=== PATIENT | female | born 1965 | race Caucasian/White ===

== ENCOUNTER 2017-05-11 13:29 | Emergency (ER) | payer MEDICARE ==
--- NOTE | 2017-05-11 14:36 | UC ---
Head Injury HPI - HPI Summary HPI Summary: patient slipped on the ice yesterday, per her , she does not remember falling, she was told she was not making sense, her took her to the ER, but they did not stay do to the wait. She is complaining of neck pain over the upper C spine. She is complaining of jaw and fullness in the sinus area nausea, and admits to confusion with her speech, not being able to find the right words. She does not feel comfortable moving her head. - History Of Current Complaint Chief Complaint: UCHeadInjury Stated Complaint: NECK PAIN/HEAD INJ Time Seen by Provider: 05/11/17 14:18 Hx Obtained From: Patient ?: No - pt is sexually active, NO BC, lmp december, waived UA Mechanism Of Injury: fall, hit back of head Onset/Duration: Sudden Onset, Lasting Days - 1 Severity Currently: Severe Severity Initially: Severe Character: Dull, Throbbing, Pressure Aggravating Factor(s): Nothing Alleviating Factor(s): Nothing Associated Signs And Symptoms: Positive: LOC Duration Unknown, Confusion, Memory Loss, Neck Pain, Nausea - Allergies/Home Medications Allergies/Adverse Reactions: Allergies Allergy/AdvReac Type Severity Reaction Status Date / Time No Known Allergies Allergy Verified 05/11/17 13:56 Home Medications: Home Medications Levothyroxine TAB* [Synthroid TAB*] 125 mcg PO 0800 05/11/17 [History Confirmed 05/11/17] Verapamil TAB* [Calan TAB*] 120 mg PO BID 05/11/17 [History Confirmed 05/11/17] clonazePAM TAB(*) [KlonoPIN TAB(*)] 0.5 mg PO TID PRN 05/11/17 [History Confirmed 05/11/17] PMH/Surg Hx/FS Hx/Imm Hx Previously Healthy: Yes - Surgical History Surgical History: None - Family History Known Family History: Positive: Hypertension - Social History Alcohol Use: None Alcohol Amount: sober x 11 days Substance Use Type: None Smoking Status (MU): Never Smoked Tobacco Review of Systems Constitutional: Negative Skin: Negative Eyes: Negative ENT: Negative Respiratory: Negative Cardiovascular: Negative Gastrointestinal: Negative Genitourinary: Negative Motor: Negative Neurovascular: Decreased Sensation - left foot and hand Musculoskeletal: Arthralgia - right thorasic and neck, Myalgia - back and neck and jaw Neurological: Headache Psychological: Negative Is Patient Immunocompromised?: No All Other Systems Reviewed And Are Negative: Yes Physical Exam Triage Information Reviewed: Yes Appearance: Well-Nourished, Ill-Appearing, Pain Distress Vital Signs: Initial Vital Signs Temp 98.7 F 05/11/17 13:43 Pulse 79 05/11/17 13:43 Resp 16 05/11/17 13:43 BP 150/97 05/11/17 13:43 Pulse Ox 98 05/11/17 13:43 Vital Signs Reviewed: Yes Eye Exam: Normal Eyes: Positive: Other: - PERRLA ENT: Positive: Pharynx normal Dental Exam: Normal Dental: Positive: Other: - lower mandible tenderness on palpation Neck exam: Normal Neck: Positive: Supple, No Lymphadenopathy, Tenderness @ - over the cervical spine and occiput Respiratory Exam: Normal Respiratory: Positive: Chest non-tender, Lungs clear, Normal breath sounds Cardiovascular Exam: Normal Cardiovascular: Positive: RRR, No Murmur, Pulses Normal Abdominal Exam: Normal Abdomen Description: Positive: Nontender, No Organomegaly, Soft Bowel Sounds: Positive: Present Musculoskeletal Exam: Normal Musculoskeletal: Positive: Strength Intact, ROM Intact, No Edema Neurological Exam: Normal Neurological: Positive: Alert, Muscle Tone Normal Psychological: Positive: Other: - seems confused at times with questioning Skin Exam: Normal Head Injury Course/Dx - Course Course Of Treatment: hx obtained, exam performed ,meds reviewed, ct of brain and c spine completed. - Differential Dx/Diagnosis Differential Diagnosis/HQI/PQRI: Cervical Sprain, Concussion With LOC, Contusion , Mandible Fracture, Skull Fracture Provider Diagnoses: Concussion with LOC. DJD of cervical spine. sinusitis Discharge - Discharge Plan Condition: Stable Disposition: HOME Patient Education Materials: Post Concussion Syndrome (ED), Concussion (ED), Sinusitis (ED) Referrals: Tawny Cervantes PA [Primary Care Provider] - Additional Instructions: Follow up with Tawny Cervantes in the next week Rest, no TV, PHONE, keep music at a minimum, rest, in dark quiet room, If your symtpoms worsen please report to ER Your CT of the brain was negative for any bleeding. Your CT was negative for Fracture, noted some chronic dengerative joint disease of the C2 -C4 WEAR the soft collar for support, continue with tylenol and ibuprofen for pain and stiffness. take the flexeril as needed. I recommend not driving until cleasred by Tawny Cervantes. You also have a significant Sinusitis of the left maxillary sinus. take the amoxicillin as prescribed.
--- NOTE | 2017-05-11 15:15 | RAD ---
HISTORY: Fall, loss of consciousness COMPARISONS: October 02, 2006 TECHNIQUE: Multiple contiguous axial CT scans were obtained of the head without intravenous contrast. FINDINGS: HEMORRHAGE/INFARCT: There is no hemorrhage or acute infarct. MASSES/SHIFT: There is no mass or shift. EXTRA-AXIAL SPACES: There are no extra-axial fluid collections. SULCI AND VENTRICLES: The sulci and ventricles are normal in size and position for the patient's stated age. CEREBRUM: There are no focal parenchymal abnormalities. BRAINSTEM: There are no focal parenchymal abnormalities. CEREBELLUM: There are no focal parenchymal abnormalities. VESSELS: The vessels are grossly normal. PARANASAL SINUSES: There is polypoid mucosal thickening versus mucus retention cyst of the left maxillary sinus. ORBITS: The orbits are unremarkable. BONES AND SOFT TISSUE: No bone or soft tissue abnormalities are noted. OTHER: None IMPRESSION: NO ACUTE INTRACRANIAL PATHOLOGY.
--- NOTE | 2017-05-11 15:18 | RAD ---
HISTORY: Fall, neck pain COMPARISONS: None TECHNIQUE: Multiple contiguous axial CT scans were obtained of the cervical spine without intravenous contrast, with coronal and sagittal multiplanar reformations. FINDINGS: BRAIN: The visualized brain is unremarkable CENTRAL CANAL: Evaluation of the central canal is limited on CT technique; however, there is no obvious canalicular mass or epidural hemorrhage. ALIGNMENT: There is straightening of the cervical lordosis. VERTEBRAL BODIES: The odontoid process is intact. The atlantoaxial intervals are symmetric. The vertebral bodies are normal in attenuation, without fracture. JOINTS: There is facet osteoarthritis most pronounced on the right at C2-C3 and C3-C4. MUSCULATURE: Unremarkable INTERVERTEBRAL DISCS: There is diffuse loss of intervertebral disc height. AXIAL IMAGES: C2-C3: There is moderate right osseous neural foraminal narrowing. There is no osseous central canal stenosis. C3-C4: There is moderate right osseous neural foraminal narrowing. There is no osseous central canal stenosis. C4-C5: There is no osseous neural foraminal narrowing or central canal stenosis. C5-C6: There is no osseous neural foraminal narrowing or central canal stenosis. C6-C7: There is no osseous neural foraminal narrowing or central canal stenosis. C7-T1: There is no osseous neural foraminal narrowing or central canal stenosis. SOFT TISSUES: The thyroid gland is atrophic. The prevertebral fat stripe is preserved. OTHER: None. IMPRESSION: 1. DEGENERATIVE DISC DISEASE AND OSTEOARTHRITIS MOST PRONOUNCED AT C2-C3 AND C3-C4. 2. NO ACUTE OSSEOUS INJURY TO THE CERVICAL SPINE
[2017-05-11 15:52] VITALS: BP 166/85
== END 2017-05-11 15:52 | disposition home or self-care (01) ==
LOC: UCCORT 13:29
DX: Z72.89 Other problems related to lifestyle (principal); S06.0X9A Concussion with loss of consciousness of unspecified duration, initial encounter; W00.0XXA Fall on same level due to ice and snow, initial encounter; Y93.9 Activity, unspecified; Y92.9 Unspecified place or not applicable; M47.892 Other spondylosis, cervical region; J32.9 Chronic sinusitis, unspecified
CPT/HCPCS: 70450; 72125; 99213; G0463